=== PATIENT | male | born 1930 | race Caucasian/White ===

== ENCOUNTER 2016-11-25 07:33 | Inpatient (IN) | payer MEDICARE, OTHER ==
[~2016-11-25] VITALS: Ht 167.6 cm; Wt 85.0 kg
[2016-11-25] MEDS ORDERED: SODIUM CHLORIDE FLUSH 10ML SYR IVF ONE (08:30)
[2016-11-25] MEDS ORDERED: SODIUM CHLORIDE 0.9% 1,000ML IVBOLUS ONE (08:30)
[2016-11-25 09:10] LABS: BLOOD UREA NITROGEN 31 mg/dL (7-18)
[2016-11-25 09:15] LABS: ASPARTATE AMINO TRANSFERASE 13 U/L (15-37)
[2016-11-25 09:16] LABS: IS PT STATUS REG ER OR PRE ER? YES
[2016-11-25] MEDS ORDERED: ALBU0.63 NEB (09:34)
[2016-11-25] MEDS ORDERED: TAMS0.4C2 PO (09:34)
[2016-11-25] MEDS ORDERED: CYAN500T18 PO (09:34)
[2016-11-25] MEDS ORDERED: CHOL2000 PO (09:34)
[2016-11-25] MEDS ORDERED: METO25TA91 PO ×2 (09:34→15:57)
[2016-11-25] MEDS ORDERED: OMEP-110 PO (09:34)
[2016-11-25] MEDS ORDERED: INSU100C5 SQ-INSULIN (09:34)
[2016-11-25] MEDS ORDERED: ATOR80TA75 PO (09:34)
[2016-11-25] MEDS ORDERED: METO25TA2 PO (09:34)
[2016-11-25] MEDS ORDERED: [UNRECOGNIZED DRUG - OTHER] PO (09:35)
[2016-11-25] MEDS ORDERED: SODIUM CHLORIDE 0.9%, 500ML IVBOLUS ONE (11:00)
[2016-11-25] MEDS ORDERED: OMNIPAQUE 350 MG/ML, 100ML BOTTLE ONE (11:38)
[2016-11-25 11:44] LABS: PATH.CAST-FLAG NOT PRESENT; SPERM-FLAG NOT PRESENT; SRC-FLAG NOT PRESENT; XTAL-FLAG NOT PRESENT; YLC-FLAG NOT PRESENT
[2016-11-25 15:41] VITALS: BP 156/64
[2016-11-25] MEDS ORDERED: INSU100I17 SQ (17:45)
[2016-11-25] MEDS: SODIUM CHLORIDE 0.9% 1,000 ML IV SCH (18:13)
[2016-11-25] MEDS ORDERED: POLYETHYLENE GLYCOL 17 GM PACKET PO PRN (18:30)
[2016-11-25] MEDS ORDERED: ACETAMINOPHEN 325 MG TABLET PO PRN (18:30)
[2016-11-25] MEDS ORDERED: DOCUSATE 100 MG CAPSULE PO PRN (18:30)
[2016-11-25] MEDS ORDERED: ALBUTEROL SULFATE 2.5 MG/3 ML NPPB PRN (18:30)
[2016-11-25] MEDS ORDERED: ONDANSETRON 2MG/ML, 2ML IVPush PRN (18:30)
[2016-11-25] MEDS ORDERED: hydrALAzine 20 MG/ML, 1ML IVPush PRN (18:30)
[2016-11-25] MEDS ORDERED: morphine SULFATE 10 MG/ML, 1ML IVPush PRN (18:30)
[2016-11-25] MEDS ORDERED: BISACODYL 10 MG SUPP PR PRN (18:30)
[2016-11-25] MEDS ORDERED: OXYcodone IR 5MG TABLET PO PRN (18:30)
[2016-11-25 20:00] VITALS: BP 160/65
[2016-11-25] MEDS: MULTIVITAMINS/MINERALS TABLET PO SCH (20:09)
[2016-11-25] MEDS: HEPARIN 5,000 UNITS/ML, 1ML SQ SCH (20:10)
[2016-11-25] MEDS: INSULIN ASPART 100 UNITS/ML, PEN SQ-INSULIN SCH (20:41)
[2016-11-25] MEDS ORDERED: METOPROLOL SUCCINATE 25 MG TAB.ER.24H PO SCH (21:00)
[2016-11-25] MEDS ORDERED: ATORVASTATIN 80 MG TABLET PO SCH (21:00)
[2016-11-25] MEDS ORDERED: TAMSULOSIN 0.4 MG CAP.ER.24H PO SCH (21:00)
[2016-11-26 00:02] LABS: PATH.CAST-FLAG NOT PRESENT; SPERM-FLAG NOT PRESENT; SRC-FLAG NOT PRESENT; XTAL-FLAG NOT PRESENT; YLC-FLAG NOT PRESENT
[2016-11-26 02:00] VITALS: BP 156/62
[2016-11-26] MEDS: HEPARIN 5,000 UNITS/ML, 1ML SQ SCH ×2 (05:20→16:58)
[2016-11-26] MEDS: SODIUM CHLORIDE 0.9% 1,000 ML IV SCH (05:21)
[2016-11-26 05:59] LABS: ASPARTATE AMINO TRANSFERASE 11 U/L (15-37); BLOOD UREA NITROGEN 30 mg/dL (7-18)
[2016-11-26] MEDS: INSULIN ASPART 100 UNITS/ML, PEN SQ-INSULIN SCH ×3 (07:00→16:00)
[2016-11-26 07:27] VITALS: BP 144/69
[2016-11-26] MEDS ORDERED: CYANOCOBALAMIN 1,000 MCG TABLET PO SCH (09:00)
[2016-11-26] MEDS ORDERED: METOPROLOL SUCCINATE 25 MG TAB.ER.24H PO SCH (09:00)
[2016-11-26] MEDS ORDERED: CHOLECALCIFEROL 1,000 UNIT TABLET PO SCH (09:00)
[2016-11-26] MEDS ORDERED: OMEPRAZOLE 20 MG CAPSULE.DR PO SCH (09:00)
[2016-11-26] MEDS ORDERED: CLOPIDOGREL 75 MG TABLET PO SCH (09:00)
[2016-11-26] MEDS ORDERED: FINA5TAB4 PO (09:27)
[2016-11-26] MEDS: MULTIVITAMINS/MINERALS TABLET PO SCH (09:32)
[2016-11-26 12:46] VITALS: BP 111/80
[2016-11-26] MEDS ORDERED: CLOP75TA PO (17:31)
[2016-11-26] MEDS ORDERED: ASPI-621 PO (17:31)
[2016-11-26] MEDS ORDERED: LISI5TAB7 PO (17:41)
== END 2016-11-26 18:41 | disposition home or self-care (01) | DRG 682 ==
LOC: ED 08:40 → EDIP 13:12 → 4EST 15:21
PROVIDERS: ADMIT Internal Medicine; ATTEND Internal Medicine
DX: I12.9 Hypertensive chronic kidney disease with stage 1 through stage 4 chronic kidney disease, or unspecified chronic kidney disease (principal); I63.9 Cerebral infarction, unspecified; E44.0 Moderate protein-calorie malnutrition; I25.10 Atherosclerotic heart disease of native coronary artery without angina pectoris; E11.22 Type 2 diabetes mellitus with diabetic chronic kidney disease; E78.00 Pure hypercholesterolemia, unspecified; E78.5 Hyperlipidemia, unspecified; E11.51 Type 2 diabetes mellitus with diabetic peripheral angiopathy without gangrene; J32.9 Chronic sinusitis, unspecified; J44.9 Chronic obstructive pulmonary disease, unspecified; N18.3 Chronic kidney disease, stage 3 (moderate); N40.0 Benign prostatic hyperplasia without lower urinary tract symptoms; D71 Functional disorders of polymorphonuclear neutrophils; R27.0 Ataxia, unspecified; M54.5 Low back pain; Z79.02 Long term (current) use of antithrombotics/antiplatelets; Z79.82 Long term (current) use of aspirin; Z85.828 Personal history of other malignant neoplasm of skin; Z86.73 Personal history of transient ischemic attack (TIA), and cerebral infarction without residual deficits; Z86.79 Personal history of other diseases of the circulatory system; Z87.891 Personal history of nicotine dependence; Z90.49 Acquired absence of other specified parts of digestive tract; Z95.0 Presence of cardiac pacemaker; Z09 Encounter for follow-up examination after completed treatment for conditions other than malignant neoplasm; Z95.1 Presence of aortocoronary bypass graft; Z68.30 Body mass index [BMI] 30.0-30.9, adult; Z79.899 Other long term (current) drug therapy
CPT/HCPCS: 36415; 70450; 71010; 71275; 80053; 80061; 81001; 82962; 83036; 83605; 83735; 84439; 84443; 84484; 85025; 85379; 85610; 87040; 93005; 93306; 93880; 96360; 96361; J1644; J1815; Q9967; J7030; J7040